=== PATIENT | female | born 1950 | race Caucasian/White ===

== ENCOUNTER 2020-04-24 12:20 | Outpatient (REF) | payer MEDICARE, SELFPAY ==
[2020-04-24 12:47] VITALS: BP 129/78; PULSE 118; RESP 16; TEMP 36.6; O2SAT 96
[2020-04-24 12:48] VITALS: BMI 47.5
== END 2020-04-24 12:21 | disposition home or self-care (01) ==
LOC: HO.MS 12:20
PROVIDERS: PCP Internal Medicine; Visit Provider Ophthalmology
PROC: (CPT 66821; principal; 2020-04-24 14:40)
DX: H26.491 Other secondary cataract, right eye (principal); Z83.511 Family history of glaucoma; Z96.1 Presence of intraocular lens; I10 Essential (primary) hypertension; Z87.891 Personal history of nicotine dependence; Z79.899 Other long term (current) drug therapy
CPT/HCPCS: 66821

== ENCOUNTER 2020-06-01 07:25 | Outpatient (REF) | payer MEDICARE, SELFPAY ==
[2020-06-01 08:45] LABS: MANUAL DIFF FLAG NO
[2020-06-01 08:55] LABS: Basophils Absolute Auto 0.1 X10*3/uL (0.0-0.2); Basophils Percent Auto 0.6 % (0-2); Eosinophils Absolute Auto 0.2 X10*3/uL (0.0-0.4); Eosinophils Percent Auto 1.6 % (0-4); Hematocrit 42.4 % (37-47); Hemoglobin 13.8 g/dl (12.0-16.0); Imm Gran Abs Auto 0.05 X10*3/uL (0.00-0.03); Imm Gran Pct Auto 0.5 % (0.0-0.4); Lymphocytes Absolute Auto 2.1 X10*3/uL (1.2-4.9); Lymphocytes Percent Auto 21.1 % (20-40); Mean Corpuscular HGB Conc 32.5 g/dl (31.0-35.0); Mean Corpuscular Hemoglobin 28.4 pg (27.0-33.0); Mean Corpuscular Volume 87.2 fL (80-98); Mean Platelet Volume 10.2 fL (9.4-12.3); Monocytes Absolute Auto 0.7 X10*3/uL (0.1-1.2); Monocytes Percent Auto 7.2 % (2-11); Neutrophils Absolute Auto 6.8 X10*3/uL (2.0-8.3); Platelet Count 344 X10*3/uL (160-400); Red Blood Count 4.86 X10*6/uL (4.20-5.50); Red Cell Distribution Width 13.9 % (11.0-16.0); White Blood Count 9.8 X10*3/uL (4.8-10.8)
[2020-06-01 09:18] LABS: Alanine Aminotransferase 15 U/L (0-31); Alkaline Phosphatase 103 U/L (39-117); Anion Gap 14 (12-20); Aspartate Amino Transferase 16 U/L (5-31); Bilirubin Total 0.5 mg/dL (0.0-1.0); Blood Urea Nitrogen 12 mg/dL (9-16); Calcium 9.1 mg/dL (8.4-10.2); Carbon Dioxide 29 mmol/L (22-29); Chloride 102 mmol/L (96-108); Cholesterol 200 mg/dL; Estimated Glomerular Filt Rate > 60; Glucose Fasting 100 mg/dL (60-99); HDL Cholesterol 74 mg/dL; LDL Cholesterol Calculated 113 mg/dl; Potassium 4.2 mmol/l (3.3-5.1); Sodium 141 mmol/L (135-145); Total Protein 6.9 g/dL (6.5-8.0); Triglycerides 67 mg/dL
[2020-06-01 09:39] LABS: TSH reflex Free T4 1.05 mIU/mL (0.32-4.0); Vitamin D 25-OH Total 37.1 ng/mL (>30)
[2020-06-01 09:51] LABS: Glucose Urine UA NEG (NEG); Leukocyte Esterase Urine NEG (NEG); Nitrite Urine NEG (NEG); PH 6.5 (5.0-8.0); Urine Blood NEG (NEG); Urine Ketones NEG (NEG); Urine Protein NEG (NEG-TRACE)
[2020-06-01 10:04] LABS: Appearance Urine CLEAR; Color Urine YELLOW
[2020-06-01 10:11] LABS: Bacteria Urine 1+ /LPF; RBC Urine 0 /HPF (0); Squamous Epithelial Cell Urine 3+ /LPF
[2020-06-01 10:21] LABS: Estimated Average Glucose 114 mg/dL; Hemoglobin A1c % 5.6 %
== END 2020-06-01 07:26 | disposition home or self-care (01) ==
LOC: HO.LAB 07:25
PROVIDERS: PCP Internal Medicine; Visit Provider Internal Medicine
DX: E78.5 Hyperlipidemia, unspecified (principal); I10 Essential (primary) hypertension; R73.01 Impaired fasting glucose; J44.9 Chronic obstructive pulmonary disease, unspecified; K21.9 Gastro-esophageal reflux disease without esophagitis; E55.9 Vitamin D deficiency, unspecified; I89.0 Lymphedema, not elsewhere classified; F32.9 Major depressive disorder, single episode, unspecified; E66.01 Morbid (severe) obesity due to excess calories
CPT/HCPCS: 36415; 80053; 80061; 81001; 82306; 83036; 84443; 85025

== ENCOUNTER 2020-08-18 07:21 | Outpatient (REF) | payer MEDICARE, SELFPAY ==
[2020-08-18 07:57] LABS: Glucose Urine UA NEG (NEG); Leukocyte Esterase Urine NEG (NEG); Nitrite Urine NEG (NEG); PH 6.5 (5.0-8.0); Specific Gravity - Urine 1.015 (1.005-1.025); Urine Blood NEG (NEG); Urine Ketones NEG (NEG); Urine Protein NEG (NEG-TRACE)
[2020-08-18 07:58] LABS: Appearance Urine CLEAR; Color Urine YELLOW
[2020-08-18 08:20] LABS: MANUAL DIFF FLAG NO
[2020-08-18 08:31] LABS: Basophils Absolute Auto 0.1 X10*3/uL (0.0-0.2); Basophils Percent Auto 0.5 % (0-2); Eosinophils Absolute Auto 0.2 X10*3/uL (0.0-0.4); Eosinophils Percent Auto 2.1 % (0-4); Hematocrit 41.5 % (37-47); Hemoglobin 13.3 g/dl (12.0-16.0); Imm Gran Abs Auto 0.04 X10*3/uL (0.00-0.03); Imm Gran Pct Auto 0.4 % (0.0-0.4); Lymphocytes Absolute Auto 2.5 X10*3/uL (1.2-4.9); Lymphocytes Percent Auto 23.6 % (20-40); Mean Corpuscular Hemoglobin 28.1 pg (27.0-33.0); Mean Corpuscular Volume 87.6 fL (80-98); Mean Platelet Volume 10.4 fL (9.4-12.3); Monocytes Absolute Auto 0.8 X10*3/uL (0.1-1.2); Monocytes Percent Auto 7.1 % (2-11); Neutrophils Absolute Auto 7.1 X10*3/uL (2.0-8.3); Neutrophils Percent Auto 66.3 % (45-73); Platelet Count 356 X10*3/uL (160-400); Red Blood Count 4.74 X10*6/uL (4.20-5.50); Red Cell Distribution Width 14.5 % (11.0-16.0); White Blood Count 10.7 X10*3/uL (4.8-10.8)
[2020-08-18 08:51] LABS: Alanine Aminotransferase 16 U/L (0-31); Albumin Level 3.8 g/dL (3.5-5.0); Alkaline Phosphatase 93 U/L (39-117); Anion Gap 13 (12-20); Aspartate Amino Transferase 14 U/L (5-31); Bilirubin Total 0.7 mg/dL (0.0-1.0); Blood Urea Nitrogen 12 mg/dL (9-16); Calcium 9.2 mg/dL (8.4-10.2); Carbon Dioxide 27 mmol/L (22-29); Chloride 105 mmol/L (96-108); Cholesterol 197 mg/dL; Estimated Glomerular Filt Rate > 60; Glucose Fasting 95 mg/dL (60-99); HDL Cholesterol 77 mg/dL; LDL Cholesterol Calculated 110 mg/dl; Potassium 4.4 mmol/L (3.3-5.1); Sodium 141 mmol/L (135-145); Total Protein 6.6 g/dL (6.5-8.0); Triglycerides 53 mg/dL
[2020-08-18 09:08] LABS: Erythrocyte Sedimentation Rate 38 MM/HR (0-20)
[2020-08-18 09:14] LABS: TSH reflex Free T4 1.37 uIU/mL (0.32-4.0); Vitamin D 25-OH Total 34.1 ng/mL (>30)
== END 2020-08-18 07:22 | disposition home or self-care (01) ==
LOC: HO.LAB 07:21
PROVIDERS: PCP Internal Medicine; Visit Provider Internal Medicine
DX: M25.50 Pain in unspecified joint (principal); K21.9 Gastro-esophageal reflux disease without esophagitis; I10 Essential (primary) hypertension; J44.9 Chronic obstructive pulmonary disease, unspecified; E78.00 Pure hypercholesterolemia, unspecified; R73.01 Impaired fasting glucose; I89.0 Lymphedema, not elsewhere classified; M17.10 Unilateral primary osteoarthritis, unspecified knee; E66.01 Morbid (severe) obesity due to excess calories; Z68.42 Body mass index [BMI] 45.0-49.9, adult; E55.9 Vitamin D deficiency, unspecified
CPT/HCPCS: 36415; 80053; 80061; 81003; 82306; 84443; 85025; 85652

== ENCOUNTER → 2020-12-01 08:19 | Outpatient (BNVA) | payer MEDICARE, SELFPAY | PROVIDERS: PCP Internal Medicine; Visit Provider Obstetrics & Gynecology | DX: N95.0 Postmenopausal bleeding (principal); R10.2 Pelvic and perineal pain | CPT/HCPCS: 99202 ==

== ENCOUNTER 2020-12-05 07:15 | Outpatient (REF) | payer MEDICARE, SELFPAY ==
[2020-12-05 08:07] LABS: MANUAL DIFF FLAG NO
[2020-12-05 08:16] LABS: Basophils Absolute Auto 0.1 X10*3/uL (0.0-0.2); Basophils Percent Auto 0.6 % (0-2); Eosinophils Absolute Auto 0.2 X10*3/uL (0.0-0.4); Eosinophils Percent Auto 2.3 % (0-4); Hematocrit 39.9 % (37-47); Hemoglobin 12.7 g/dl (12.0-16.0); Imm Gran Abs Auto 0.04 X10*3/uL (0.00-0.03); Imm Gran Pct Auto 0.4 % (0.0-0.4); Lymphocytes Absolute Auto 2.4 X10*3/uL (1.2-4.9); Lymphocytes Percent Auto 26.2 % (20-40); Mean Corpuscular HGB Conc 31.8 g/dl (31.0-35.0); Mean Corpuscular Hemoglobin 27.9 pg (27.0-33.0); Mean Corpuscular Volume 87.7 fL (80-98); Mean Platelet Volume 10.5 fL (9.4-12.3); Monocytes Absolute Auto 0.7 X10*3/uL (0.1-1.2); Monocytes Percent Auto 7.6 % (2-11); Neutrophils Absolute Auto 5.7 X10*3/uL (2.0-8.3); Neutrophils Percent Auto 62.9 % (45-73); Platelet Count 396 X10*3/uL (160-400); Red Blood Count 4.55 X10*6/uL (4.20-5.50); Red Cell Distribution Width 14.4 % (11.0-16.0)
[2020-12-05 08:40] LABS: Estimated Average Glucose 114 mg/dL; Hemoglobin A1c % 5.6 %
[2020-12-05 08:42] LABS: Alanine Aminotransferase 14 U/L (0-31); Albumin Level 3.7 g/dL (3.5-5.0); Alkaline Phosphatase 97 U/L (39-117); Anion Gap 10 (12-20); Aspartate Amino Transferase 15 U/L (5-31); Bilirubin Total 0.5 mg/dL (0.0-1.0); Blood Urea Nitrogen 10 mg/dL (9-16); Calcium 9.3 mg/dL (8.4-10.2); Carbon Dioxide 29 mmol/L (22-29); Chloride 109 mmol/L (96-108); Cholesterol 195 mg/dL; Estimated Glomerular Filt Rate > 60; Glucose Fasting 109 mg/dL (60-99); HDL Cholesterol 67 mg/dL; LDL Cholesterol Calculated 115 mg/dl; Potassium 4.7 mmol/L (3.3-5.1); Sodium 143 mmol/L (135-145); Total Protein 6.3 g/dL (6.5-8.0); Triglycerides 65 mg/dL
[2020-12-05 08:54] LABS: Glucose Urine UA NEG (NEG); Leukocyte Esterase Urine NEG (NEG); Nitrite Urine NEG (NEG); Specific Gravity - Urine <= 1.005 (1.005-1.025); Urine Blood NEG (NEG); Urine Ketones NEG (NEG); Urine Protein NEG (NEG-TRACE)
[2020-12-05 08:57] LABS: Erythrocyte Sedimentation Rate 31 MM/HR (0-20)
[2020-12-05 09:00] LABS: Appearance Urine HAZY; Color Urine YELLOW
[2020-12-05 09:02] LABS: TSH reflex Free T4 0.81 uIU/mL (0.32-4.0); Vitamin D 25-OH Total 32.8 ng/mL (>30)
== END 2020-12-05 07:16 | disposition home or self-care (01) ==
LOC: HO.LAB 07:15
PROVIDERS: PCP Internal Medicine; Visit Provider Internal Medicine
DX: E55.9 Vitamin D deficiency, unspecified (principal); M17.10 Unilateral primary osteoarthritis, unspecified knee; M25.50 Pain in unspecified joint; E78.00 Pure hypercholesterolemia, unspecified; I10 Essential (primary) hypertension; I89.0 Lymphedema, not elsewhere classified; R73.01 Impaired fasting glucose; G47.33 Obstructive sleep apnea (adult) (pediatric); J44.9 Chronic obstructive pulmonary disease, unspecified; K21.9 Gastro-esophageal reflux disease without esophagitis; E66.01 Morbid (severe) obesity due to excess calories; Z68.42 Body mass index [BMI] 45.0-49.9, adult
CPT/HCPCS: 36415; 80053; 80061; 81003; 82306; 83036; 84443; 85025; 85652

== ENCOUNTER 2020-12-18 15:23 | Outpatient (REF) | payer MEDICARE, SELFPAY ==
--- NOTE | ~2020-12-18 | US_ITS ---
EXAMINATION: PELVIC ULTRASOUND CLINICAL INFORMATION: Postmenopausal bleeding COMPARISON: Previous pelvic ultrasound January 2017 TECHNIQUE: Transabdominal pelvic ultrasound was performed. Patient declined transvaginal imaging. FINDINGS: The uterus is anteverted and measures 7.5 x 3.5 x 3.7 cm in dimension. Endometrial thickness is upper normal for a postmenopausal patient measuring 0.5 cm. No focal uterine lesion is seen. The ovaries are not seen. There is no fluid in the pelvis. US/US pelvic and transvaginal IMPRESSION: Limited exam. Upper normal thickness endometrium measuring 0.5 cm. Ovaries not seen.
== END 2020-12-18 15:24 | disposition home or self-care (01) ==
LOC: HO.US 15:23
PROVIDERS: PCP Internal Medicine; Visit Provider Obstetrics & Gynecology
DX: R10.2 Pelvic and perineal pain (principal); N95.0 Postmenopausal bleeding
CPT/HCPCS: 76830; 76856

== ENCOUNTER → 2020-12-22 10:42 | Outpatient (BNVA) | payer MEDICARE, SELFPAY | PROVIDERS: PCP Internal Medicine; Visit Provider Obstetrics & Gynecology | DX: N95.0 Postmenopausal bleeding (principal) | CPT/HCPCS: Q3014 ==

== ENCOUNTER → 2021-01-08 10:16 | Outpatient (BNVA) | payer MEDICARE, SELFPAY | PROVIDERS: PCP Internal Medicine; Visit Provider Obstetrics & Gynecology | DX: N95.0 Postmenopausal bleeding (principal) | CPT/HCPCS: 99212 ==

== ENCOUNTER 2021-01-12 09:03 | Day surgery (SDC) | payer MEDICARE, SELFPAY ==
--- NOTE | 2021-01-11 08:38 | HO.ANESPROP2 ---
Documented by User: Katlyn Mejia 01/11/21 08:39 HPI - Anesthesia Eval Consult details Narrative: 70yo F for D&C Hysteroscopy, Poss Polypectomy, Poss Myomectomy PMFSH Active Problems Active Problems: All Active Problems (Updated 12/26/20 @ 10:05 by HUBER Torres) Adult general medical exam (Acute) Post-menopausal (Acute) Screening for breast cancer (Acute) Screening for colon cancer (Acute) Postmenopausal bleeding (Acute) Anxiety (Acute) Morbid obesity with BMI of 45.0-49.9, adult (Acute) Depression (Acute) Lymphedema of both lower extremities (Acute) Polyarthralgia (Acute) Vitamin D deficiency (Acute) GERD without esophagitis (Acute) Obstructive sleep apnea (Acute) Osteoarthritis, knee (Acute) Impaired fasting glucose (Acute) Exertional dyspnea (Acute) COPD (chronic obstructive pulmonary disease) (Acute) Pure hypercholesterolemia (Acute) Benign essential hypertension (Acute) Leg wound, right (Acute) Leg wound, left (Acute) Lymphedema (Acute) Past Medical History Medical History Anxiety Benign essential hypertension COPD (chronic obstructive pulmonary disease) Depression Exertional dyspnea GERD without esophagitis Impaired fasting glucose Leg wound, left Leg wound, right Lymphedema Lymphedema of both lower extremities Morbid obesity with BMI of 45.0-49.9, adult Obstructive sleep apnea Osteoarthritis, knee Polyarthralgia Post-menopausal Pure hypercholesterolemia Screening for breast cancer Screening for colon cancer Vitamin D deficiency Family History Family History Father Diabetes CVD (cardiovascular disease) Mother No problems noted. Family/Other FH: mental illness Son Suicide Other Substance abuse Surgical History Surgical History History of arthroplasty of left knee History of biopsy History of cataract surgery History of colonoscopy History of hysteroscopy History of laparoscopic cholecystectomy History of vascular surgery Status post surgical removal of nail matrix of toe of right foot Social History Social History Housing: House Alcohol intake: current Alcohol intake frequency: holidays/special occasions only Patient Tobacco Use Status: Former Tobacco user Use of substances other than those prescribed or required for medical reasons: No Are you DNR?: No Advance Directives: No Advance Directives Information Provided: Yes service: No Current occupational status: retired Meds Allergies Allergy/AdvReac Type Severity Reaction Status Date / Time gabapentin AdvReac Unknown drowsiness, Verified 01/08/21 10:39 confusion Home Medications Medication Instructions Recorded Confirmed Last Taken Type tramadol 50 mg tablet 50 mg PO Q6-8H PRN tab 06/05/20 01/08/21 Unknown History Exam Exam Date and Time: January 11, 2021 0838 Pertinent Lab Results Pertinent Lab Results: Laboratory Tests 12/05/20 12/05/20 07:43 07:43 WBC 9.0 Hgb 12.7 Hct 39.9 Plt Count 396 Sodium 143 Potassium 4.7 Chloride 109 H Carbon Dioxide 29 BUN 10 Creatinine 0.69 Assessment and Plan Assessment Anesthesia Assessment: Chart Reviewed Documented by User: Kaila Baron 01/12/21 10:05 PMFSH Past Medical History Medical History Anxiety Benign essential hypertension COPD (chronic obstructive pulmonary disease) Depression Exertional dyspnea GERD without esophagitis Impaired fasting glucose Leg wound, left Leg wound, right Lymphedema Lymphedema of both lower extremities Morbid obesity with BMI of 45.0-49.9, adult Obstructive sleep apnea Osteoarthritis, knee Polyarthralgia Post-menopausal Pure hypercholesterolemia Screening for breast cancer Screening for colon cancer Vitamin D deficiency Family History Family History Father Diabetes CVD (cardiovascular disease) Mother No problems noted. Family/Other FH: mental illness Son Suicide Other Substance abuse Surgical History Surgical History History of arthroplasty of left knee History of biopsy History of cataract surgery History of colonoscopy History of hysteroscopy History of laparoscopic cholecystectomy History of vascular surgery Status post surgical removal of nail matrix of toe of right foot Social History Social History Housing: House Alcohol intake: current Alcohol intake frequency: holidays/special occasions only Patient Tobacco Use Status: Former Tobacco user Use of substances other than those prescribed or required for medical reasons: No Are you DNR?: No Advance Directives: No Advance Directives Information Provided: Yes service: No Current occupational status: retired Meds Allergies Allergy/AdvReac Type Severity Reaction Status Date / Time gabapentin AdvReac Unknown drowsiness, Verified 01/08/21 10:39 confusion Home Medications Medication Instructions Recorded Confirmed Last Taken Type tramadol 50 mg tablet 50 mg PO Q6-8H PRN tab 06/05/20 01/08/21 Unknown History Exam Airway Mallampati Class: II TM Dist: >3cm Neck ROM: Full Loose/Missing/Broken Teeth: No Heart: RRR Lungs: CTA Assessment and Plan Assessment Anesthesia Assessment: Anesthesia Plan Discussed and Chart Reviewed Final Anesthetic Review NPO: Yes ASA Class: III Final Preanesthetic Review: Meds/Allgs Chart Reviewed, Consent Obtained/Reviewed and Anes Risks/Benef Reviewed Patient Risk: Intermediate Procedure Risk: Low Anesthetic Plan Anesthetic Plan: GA Disposition: Standard PACU
[2021-01-12 09:39] VITALS: BP 157/79; PULSE 99; RESP 20; TEMP 36.7; O2SAT 95; BMI 48.2
--- NOTE | 2021-01-12 09:49 | ECG_ITS ---
Test Reason : ? AFIB Blood Pressure : / mmHG Vent. Rate : 093 BPM Atrial Rate : 093 BPM P-R Int : 166 ms QRS Dur : 078 ms QT Int : 338 ms P-R-T Axes : -29 -11 008 degrees QTc Int : 420 ms Normal sinus rhythm Inferior infarct , age undetermined Abnormal ECG When compared with ECG of 04-MAR-2006 09:14, No significant change was found Referred By: Kaila Baron Electronically Signed By:PHILIP MENDEZ MD
--- NOTE | 2021-01-12 09:50 | PC.NURSE ---
3 lead monitor questionable Afib, leads adjusted, stickers adjusted, noisy strip w/ adjustments. Rhythm very regular but P waves not prominent. Anesthesia Dr Baron made aware, ekg ordered. Patient asymptomatic otherwise.
--- NOTE | 2021-01-12 09:59 | MHC.SHP ---
Pre-Procedural Eval Section A Date of Service: 01/12/21 The patient is an INPATIENT: No Changes since office visit: No Cold of Flu in the past 2 weeks, No New Medical Problems, No Changes in Medication and No Patient answered all questions The History & Physical has been completed within 30 days and I have reviewed it.: Yes Section B Chief Complaint: PMB Allergies: Allergies Allergy/AdvReac Type Severity Reaction Status Date / Time gabapentin AdvReac Unknown drowsiness, Verified 01/08/21 10:39 confusion Plan Diagnosis/Plan: Unchanged I have reviewed the history and physical and performed a pertinent physical examination on my patient. No changes have occurred unless specified.
[2021-01-12] MEDS: Lactated Ringers 1,000 ML 100 ML IVCONT (10:29)
--- NOTE | 2021-01-12 10:55 | PC.NURSE ---
Patient came into [facility] with Bilat lower leg edema. Patient has history of bilat LE lymphedema. Patient also has approx 2 inch diameter abrasion on right anterior lower leg/blake. Some localized erythema surrounding abrasion, no swelling or associated warmth when compared to rest of leg. USABILITY ENGINEERGARRET Bains visualized abrasion prior to going into OR.
[2021-01-12 11:36] VITALS: BP 153/92; PULSE 93; RESP 16; TEMP 36.1; O2SAT 96
--- NOTE | 2021-01-12 11:49 | PM.OP ---
Brief Operative Note Date of Service: 01/12/21 Pre-op diagnosis: Postmenopausal bleeding Post-op diagnosis: same (Same plus normal endometrial/endocervical cavity) Procedure: Hysteroscopy D&C, Polypectomy Surgeon: Navjot Jacob MD Anesthesia: MAC Was an Screen Printing Machine Operator used for this Procedure?: No Estimated blood loss (mL): 0 Pathology: other (Endometrial Scrapping) Condition: stable Disposition: PACU
--- NOTE | 2021-01-12 11:50 | P.OP_ITS ---
Operative Note Operative Note Date of Service: 01/12/21 Narrative: Preop Diagnosis: Postmenopausal bleeding Operation: Diagnostic Hysteroscopy, Dilataion & Curettage Post Op Diagnosis: Normal endometrial/endocervical cavity QBL: Minimal Anesthesia: MAC Surgeon: Navjot Jacob MD Internal Audit Director: None Complication: None Pathology: Endometrial Scrapings Procedure: The patient was put in the dorsal lithotomy position, scrubbed, and draped in the usual manner. A sterile speculum was inserted in the patient's vagina. The anterior lip of the cervix was grasped with a single tooth tenaculum. The cervix was dilated up to 5 mm, then the scope was inserted in the patient's uterus. Inspection revealed normal endometrial/endocervical cavity. Sharp curettings was carried on with minimal to moderate amount of tissues retrieved. At the end of the procedure, all instruments were taken out of the patient uterine and vaginal cavity. The single tooth tenaculum was removed and homeostasis was assured using pressure,. The patient tolerated the procedure well and was transferred to the PACU in a stable condition.
[2021-01-12 11:51] VITALS: BP 152/85; PULSE 92; RESP 16; O2SAT 96
[2021-01-12] MEDS: oxyCODONE HCl Immed Release 5 MG TABLET PO (12:00)
[2021-01-12 12:06] VITALS: BP 172/85; PULSE 90; RESP 16; O2SAT 96
[2021-01-12 12:21] VITALS: BP 163/82; PULSE 92; RESP 16; O2SAT 98
[2021-01-12 12:36] VITALS: BP 152/80; PULSE 93; RESP 16; O2SAT 98
== END 2021-01-12 13:14 | disposition home or self-care (01) ==
LOC: HO.SSS 09:03
PROVIDERS: PCP Internal Medicine; Visit Provider Obstetrics & Gynecology
PROC: 0UDB8ZZ Extraction of Endometrium, Via Natural or Artificial Opening Endoscopic (ICD-10-PCS; CPT 58558; principal; 2021-01-12 11:00)
DX: N95.0 Postmenopausal bleeding (principal); I10 Essential (primary) hypertension; J44.9 Chronic obstructive pulmonary disease, unspecified; G47.33 Obstructive sleep apnea (adult) (pediatric); I89.0 Lymphedema, not elsewhere classified; E66.01 Morbid (severe) obesity due to excess calories; Z68.42 Body mass index [BMI] 45.0-49.9, adult; R73.01 Impaired fasting glucose; E55.9 Vitamin D deficiency, unspecified; Z79.899 Other long term (current) drug therapy; Z88.8 Allergy status to other drugs, medicaments and biological substances; Z87.891 Personal history of nicotine dependence
CPT/HCPCS: 58558; 88305; 93005; J2250; J3010

== ENCOUNTER → 2021-01-24 11:32 | Outpatient (BNVA) | payer MEDICARE, SELFPAY | PROVIDERS: PCP Internal Medicine; Visit Provider Obstetrics & Gynecology | DX: Z98.890 Other specified postprocedural states (principal); N95.0 Postmenopausal bleeding | CPT/HCPCS: Q3014 ==

== ENCOUNTER 2021-02-15 09:14 | Outpatient (REF) | payer MEDICARE, SELFPAY ==
--- NOTE | ~2021-02-15 | MM_ITS ---
EXAMINATION: BONE DENSITOMETRY CLINICAL INDICATION: Asymptomatic menopausal state. COMPARISON: Baseline BD dated 02/18/2007. TECHNIQUE: Using a [employer] DXA System (software version: 13.1) manufactured by [employer], dual-energy x-ray absorptiometry was performed of the lumbar spine and left hip. The images are of good technical quality. Summary results are attached. FINDINGS: AP SPINE L1-L4: Current: BMD 1.379 g/cm2, Z-score 2.2, T-score 1.7, normal, 4.9% increase from baseline (<5% change is not significant). Baseline: BMD 1.315 g/cm2. LEFT FEMUR, NECK: Current: BMD 1.031 g/cm2, Z-score 0.9, T-score -0.1, normal. Baseline: BMD 1.007 g/cm2. LEFT FEMUR, TOTAL: Current: BMD 1.172 g/cm2, Z-score 2.0, T-score 1.3, normal, 8.2% decrease from baseline (<5% change is not significant). Baseline: BMD 1.277 g/cm2. IDENTIFIED RISK FACTORS: Menopause. HISTORY OF FRACTURE: None listed. MEDICATIONS: Vitamin D. MM/XR DEXA axial skeleton IMPRESSION: 1. DIAGNOSIS: Normal bone density based on the lowest T-score value of -0.1 in the femoral neck applying World Health Organization criteria. 2. 10-YEAR FRACTURE RISK PREDICTION, FRAX: Major osteoporotic fracture (clinical spine, forearm, hip or shoulder) 6.2%. Hip fracture 0.3%. 3. Treatment Recommendations: NOF guidelines recommend consideration for treatment in postmenopausal women and men age 50 and older presenting with the following: -A hip or vertebral (clinical or morphometric) fracture. -T-score less than or equal to -2.5 at the femoral neck or spine after appropriate evaluation to exclude secondary causes. -Low bone mass at the hip or spine and a 10-year fracture probability by FRAX of greater than or equal to 3% for hip fracture or greater than or equal to 20% for major osteoporotic fracture based on the [place] adapted WHO algorithm. 4. Other Recommendations: All treatment decisions require clinical judgment and consideration of individual patient factors, including patient preferences, comorbidities, previous drug use, risk factors not captured in the FRAX model (e.g. frailty, falls, vitamin D deficiency, increased bone turnover, interval significant decline in bone density) and possible under or overestimation of fracture risk by FRAX. FUTURE SCAN RECOMMENDATION: People with diagnosed cases of osteoporosis or at high risk for fracture should have regular bone mineral density tests. For patients eligible for Medicare, routine testing is allowed once every 2 years. The testing frequency can be increased to one year for patients who have rapidly progressing disease, those who are receiving or discontinuing medical therapy to restore bone mass, or have additional risk factors.
== END 2021-02-15 09:15 | disposition home or self-care (01) ==
LOC: HO.MAMMO 09:14
PROVIDERS: PCP Internal Medicine; Visit Provider Nurse Practitioner Family
DX: Z13.820 Encounter for screening for osteoporosis (principal); Z78.0 Asymptomatic menopausal state
CPT/HCPCS: 77080

== ENCOUNTER 2021-03-10 08:44 | Outpatient (REF) | payer MEDICARE, SELFPAY ==
[2021-03-10 10:06] LABS: MANUAL DIFF FLAG SCAN; PLT CLUMP 1; SCAN SMEAR FLAG 1
[2021-03-10 10:08] LABS: Basophils Absolute Auto 0.1 X10*3/uL (0.0-0.2); Basophils Percent Auto 0.6 % (0-2); Eosinophils Absolute Auto 0.2 X10*3/uL (0.0-0.4); Hematocrit 42.5 % (37-47); Hemoglobin 13.9 g/dl (12.0-16.0); Imm Gran Abs Auto 0.06 X10*3/uL (0.00-0.03); Imm Gran Pct Auto 0.6 % (0.0-0.4); Lymphocytes Absolute Auto 2.2 X10*3/uL (1.2-4.9); Mean Corpuscular HGB Conc 32.7 g/dl (31.0-35.0); Mean Corpuscular Hemoglobin 28.6 pg (27.0-33.0); Mean Corpuscular Volume 87.4 fL (80-98); Mean Platelet Volume 11.5 fL (9.4-12.3); Monocytes Absolute Auto 0.7 X10*3/uL (0.1-1.2); Neutrophils Absolute Auto 6.4 X10*3/uL (2.0-8.3); Neutrophils Percent Auto 66.8 % (45-73); Platelet Count 329 X10*3/uL (160-400); Red Blood Count 4.86 X10*6/uL (4.20-5.50); Red Cell Distribution Width 15.2 % (11.0-16.0); White Blood Count 9.6 X10*3/uL (4.8-10.8)
[2021-03-10 10:09] LABS: Appearance Urine HAZY; Color Urine YELLOW; Glucose Urine UA NEG (NEG); Leukocyte Esterase Urine NEG (NEG); Nitrite Urine NEG (NEG); Urine Blood NEG (NEG); Urine Ketones NEG (NEG); Urine Protein NEG (NEG-TRACE)
[2021-03-10 10:26] LABS: SLIDE REVIEW VERIFIED
[2021-03-10 10:42] LABS: Vitamin D 25-OH Total 34.6 ng/mL (>30)
[2021-03-10 10:44] LABS: Alanine Aminotransferase 17 U/L (0-31); Albumin Level 3.9 g/dL (3.5-5.0); Alkaline Phosphatase 100 U/L (39-117); Anion Gap 12 (12-20); Aspartate Amino Transferase 14 U/L (5-31); Bilirubin Total 0.5 mg/dL (0.0-1.0); Blood Urea Nitrogen 9 mg/dL (9-16); Calcium 9.5 mg/dL (8.4-10.2); Carbon Dioxide 29 mmol/L (22-29); Chloride 106 mmol/L (96-108); Cholesterol 209 mg/dL; Estimated Glomerular Filt Rate > 60; Glucose Fasting 95 mg/dL (60-99); HDL Cholesterol 73 mg/dL; LDL Cholesterol Calculated 121 mg/dl; Potassium 4.5 mmol/L (3.3-5.1); Sodium 142 mmol/L (135-145); Total Protein 6.7 g/dL (6.5-8.0); Triglycerides 77 mg/dL
[2021-03-12 04:00] LABS: Folate 3.2 ng/mL (> or = 4.0); Vitamin B12 333 pg/mL (200-900)
== END 2021-03-10 08:45 | disposition home or self-care (01) ==
LOC: HO.LAB 08:44
PROVIDERS: PCP Internal Medicine; Visit Provider Internal Medicine
DX: E55.9 Vitamin D deficiency, unspecified (principal); E78.00 Pure hypercholesterolemia, unspecified; E66.01 Morbid (severe) obesity due to excess calories; Z68.42 Body mass index [BMI] 45.0-49.9, adult; F33.9 Major depressive disorder, recurrent, unspecified; G62.9 Polyneuropathy, unspecified; I10 Essential (primary) hypertension; K21.9 Gastro-esophageal reflux disease without esophagitis
CPT/HCPCS: 36415; 80053; 80061; 81003; 82306; 82607; 82746; 84443; 85025

== ENCOUNTER 2021-03-20 10:17 | Outpatient (REF) | payer MEDICARE, SELFPAY | END 2021-03-20 10:18 | disposition home or self-care (01) | LOC: HO.LAB 10:17 | PROVIDERS: PCP Internal Medicine; Visit Provider Obstetrics & Gynecology | DX: N95.0 Postmenopausal bleeding (principal) | CPT/HCPCS: 58100; 88305 ==

== ENCOUNTER → 2021-04-03 15:37 | Outpatient (BNVA) | payer MEDICARE, SELFPAY | PROVIDERS: PCP Internal Medicine; Visit Provider Obstetrics & Gynecology | DX: Z78.0 Asymptomatic menopausal state (principal); I10 Essential (primary) hypertension; E78.00 Pure hypercholesterolemia, unspecified; E55.9 Vitamin D deficiency, unspecified; J44.9 Chronic obstructive pulmonary disease, unspecified; E66.01 Morbid (severe) obesity due to excess calories; G47.33 Obstructive sleep apnea (adult) (pediatric); Z87.891 Personal history of nicotine dependence; Z68.42 Body mass index [BMI] 45.0-49.9, adult; Z88.6 Allergy status to analgesic agent | CPT/HCPCS: Q3014 ==

== ENCOUNTER 2021-06-07 07:01 | Outpatient (REF) | payer MEDICARE, SELFPAY ==
[2021-06-07 07:15] LABS: MANUAL DIFF FLAG NO
[2021-06-07 07:56] LABS: Basophils Absolute Auto 0.1 X10*3/uL (0.0-0.2); Basophils Percent Auto 0.7 % (0-2); Eosinophils Absolute Auto 0.3 X10*3/uL (0.0-0.4); Eosinophils Percent Auto 4.1 % (0-4); Hematocrit 41.4 % (37.0-47.0); Hemoglobin 13.2 g/dl (12.0-16.0); Imm Gran Abs Auto 0.03 X10*3/uL (0.00-0.03); Imm Gran Pct Auto 0.4 % (0.0-0.4); Lymphocytes Percent Auto 24.5 % (20-40); Mean Corpuscular HGB Conc 31.9 g/dl (31.0-35.0); Mean Corpuscular Hemoglobin 28.5 pg (27.0-33.0); Mean Corpuscular Volume 89.4 fL (80.0-98.0); Mean Platelet Volume 10.5 fL (9.4-12.3); Monocytes Absolute Auto 0.6 X10*3/uL (0.1-1.2); Monocytes Percent Auto 7.2 % (2-11); Neutrophils Absolute Auto 5.1 x10*3/uL (2.0-8.3); Neutrophils Percent Auto 63.1 % (45-73); Platelet Count 318 X10*3/uL (160-400); Red Blood Count 4.63 X10*6/uL (4.20-5.50); Red Cell Distribution Width 14.1 % (11.0-16.0); White Blood Count 8.1 X10*3/uL (4.8-10.8)
[2021-06-07 08:15] LABS: Alanine Aminotransferase 16 U/L (0-31); Albumin Level 3.8 g/dL (3.5-5.0); Alkaline Phosphatase 101 U/L (39-117); Anion Gap 12 (12-20); Aspartate Amino Transferase 15 U/L (5-31); Bilirubin Total 0.5 mg/dL (0.0-1.0); Blood Urea Nitrogen 9 mg/dL (9-16); Calcium 9.5 mg/dL (8.4-10.2); Carbon Dioxide 29 mmol/L (22-29); Chloride 105 mmol/L (96-108); Cholesterol 205 mg/dL; Estimated Glomerular Filt Rate > 60; Glucose Fasting 93 mg/dL (60-99); HDL Cholesterol 68 mg/dL; LDL Cholesterol Calculated 124 mg/dl; Potassium 4.4 mmol/L (3.3-5.1); Sodium 142 mmol/L (135-145); Total Protein 6.6 g/dL (6.5-8.0); Triglycerides 67 mg/dL
[2021-06-07 08:39] LABS: TSH reflex Free T4 0.98 uIU/mL (0.32-4.0); Vitamin D 25-OH Total 37.1 ng/mL (>30)
[2021-06-07 08:43] LABS: Appearance Urine CLEAR; Color Urine YELLOW; Glucose Urine UA NEG (NEG); Leukocyte Esterase Urine NEG (NEG); Nitrite Urine NEG (NEG); Specific Gravity - Urine 1.015 (1.005-1.025); Urine Blood NEG (NEG); Urine Ketones NEG (NEG); Urine Protein NEG (NEG-TRACE)
== END 2021-06-07 07:02 | disposition home or self-care (01) ==
LOC: HO.LAB 07:01
PROVIDERS: PCP Internal Medicine; Visit Provider Internal Medicine
DX: E78.00 Pure hypercholesterolemia, unspecified (principal); I10 Essential (primary) hypertension; E55.9 Vitamin D deficiency, unspecified
CPT/HCPCS: 36415; 80053; 80061; 81003; 82306; 84443; 85025

== ENCOUNTER → 2021-07-10 12:00 | Outpatient (BNVA) | payer MEDICARE, SELFPAY | PROVIDERS: Visit Provider Obstetrics & Gynecology | DX: N95.0 Postmenopausal bleeding (principal) | CPT/HCPCS: Q3014 ==

== ENCOUNTER → 2021-08-08 11:42 | Outpatient (BNVA) | payer MEDICARE, SELFPAY | PROVIDERS: PCP Internal Medicine; Visit Provider Obstetrics & Gynecology | DX: N95.0 Postmenopausal bleeding (principal) | CPT/HCPCS: 99212 ==

== ENCOUNTER 2021-08-10 11:05 | Day surgery (SDC) | payer MEDICARE, SELFPAY ==
[2021-08-03 15:50] VITALS: BMI 47.2
--- NOTE | 2021-08-09 11:53 | HO.ANESPROP2 ---
Documented by User: Katlyn Mejia NP 08/09/21 11:54 HPI - Anesthesia Eval Consult details Narrative: 70yo F for D&C Hysteroscopy, Possible Polypectomy, Possible Myomectomy s/p same 12/2020 with [facility] Active Problems Active Problems: All Active Problems (Updated 03/14/21 @ 13:15 by Leland Sher MD) Postmenopausal bleeding (Acute) Adult general medical exam (Acute) Fatigue (Acute) Post-menopausal (Acute) Screening for breast cancer (Acute) Screening for colon cancer (Acute) Anxiety (Acute) Morbid obesity with BMI of 45.0-49.9, adult (Acute) Depression (Acute) Lymphedema of both lower extremities (Acute) Polyarthralgia (Acute) Vitamin D deficiency (Acute) GERD without esophagitis (Acute) Obstructive sleep apnea (Acute) Osteoarthritis, knee (Acute) Impaired fasting glucose (Acute) Exertional dyspnea (Acute) COPD (chronic obstructive pulmonary disease) (Acute) Pure hypercholesterolemia (Acute) Benign essential hypertension (Acute) Leg wound, right (Acute) Leg wound, left (Acute) Lymphedema (Acute) Past Medical History Medical History Anxiety Benign essential hypertension COPD (chronic obstructive pulmonary disease) Depression Exertional dyspnea GERD without esophagitis Impaired fasting glucose Leg wound, left Leg wound, right Lymphedema Lymphedema of both lower extremities Morbid obesity with BMI of 45.0-49.9, adult Obstructive sleep apnea Osteoarthritis, knee Polyarthralgia Post-menopausal Pure hypercholesterolemia Screening for breast cancer Screening for colon cancer Vitamin D deficiency Family History Family History Father Diabetes CVD (cardiovascular disease) Mother No problems noted. Family/Other FH: mental illness Son Suicide Other Substance abuse Surgical History Surgical History History of arthroplasty of left knee History of biopsy History of cataract surgery History of colonoscopy History of hysteroscopy History of laparoscopic cholecystectomy History of vascular surgery Status post surgical removal of nail matrix of toe of right foot Social History Social History Household Members Other:: Grandson Housing: House Are you a primary lpn care manager to a significant other at home: No Do you presently have visiting nurse or other home services: No Alcohol intake: current Alcohol intake frequency: holidays/special occasions only Patient Tobacco Use Status: Former Tobacco user Quit Date: 3 yrs ago Tobacco use type: Cigarette Second Hand Smoke Exposure: Yes Use of substances other than those prescribed or required for medical reasons: No Have you been hit, kicked, punched, or otherwise hurt by someone within the past year? If so, by whom?: No Are you DNR?: No Advance Directives: No Advance Directives Information Provided: No Advance Directives on File: No Recently lost weight without trying: No Eating poorly because of decreased appetite: No Nutrition Risks: No Nutritional Risk service: No Current occupational status: retired Meds Allergies Allergy/AdvReac Type Severity Reaction Status Date / Time gabapentin AdvReac Unknown drowsiness, Verified 08/03/21 15:37 confusion Home Medications Medication Instructions Recorded Confirmed Last Taken Type tramadol 50 mg tablet 50 mg PO Q6-8H PRN tab 06/05/20 08/03/21 Unknown History Exam Exam Date and Time: August 09, 2021 1153 Height,Weight and Vital Signs: Height 5 ft 2 in Weight 117.027 kg Pertinent Lab Results Pertinent Lab Results: Laboratory Tests 06/07/21 06/07/21 07:13 07:13 WBC 8.1 Hgb 13.2 Hct 41.4 Plt Count 318 Sodium 142 Potassium 4.4 Chloride 105 Carbon Dioxide 29 BUN 9 Creatinine 0.80 Narrative Narrative: EKG 12/2020 Vent. Rate : 093 BPM ? ? Atrial Rate : 093 BPM ?? P-R Int : 166 ms? QRS Dur : 078 ms ? ? QT Int : 338 ms ? ? ? P-R-T Axes : -29 -11 008 degrees ?? QTc Int : 420 ms ? Normal sinus rhythm Inferior infarct , age undetermined Abnormal ECG When compared with ECG of 04-MAR-2006 09:14, No significant change was found Assessment and Plan Assessment Anesthesia Assessment: Chart Reviewed Documented by User: Endre Derek, MD 08/10/21 11:39 PMF Past Medical History Medical History Anxiety Benign essential hypertension COPD (chronic obstructive pulmonary disease) Depression Exertional dyspnea GERD without esophagitis Impaired fasting glucose Leg wound, left Leg wound, right Lymphedema Lymphedema of both lower extremities Morbid obesity with BMI of 45.0-49.9, adult Obstructive sleep apnea Osteoarthritis, knee Polyarthralgia Post-menopausal Pure hypercholesterolemia Screening for breast cancer Screening for colon cancer Vitamin D deficiency Family History Family History Father Diabetes CVD (cardiovascular disease) Mother No problems noted. Family/Other FH: mental illness Son Suicide Other Substance abuse Family history of problems with anesthesia: No Surgical History Surgical History History of arthroplasty of left knee History of biopsy History of cataract surgery History of colonoscopy History of hysteroscopy History of laparoscopic cholecystectomy History of vascular surgery Status post surgical removal of nail matrix of toe of right foot History of Problems with Anesthesia: No Social History Social History Household Members Other:: Grandson Housing: House Are you a primary lpn care manager to a significant other at home: No Do you presently have visiting nurse or other home services: No Alcohol intake: current Alcohol intake frequency: holidays/special occasions only Patient Tobacco Use Status: Former Tobacco user Quit Date: 3 yrs ago Tobacco use type: Cigarette Second Hand Smoke Exposure: Yes Use of substances other than those prescribed or required for medical reasons: No Have you been hit, kicked, punched, or otherwise hurt by someone within the past year? If so, by whom?: No Are you DNR?: No Advance Directives: No Advance Directives Information Provided: No Advance Directives on File: No Recently lost weight without trying: No Eating poorly because of decreased appetite: No Nutrition Risks: No Nutritional Risk service: No Current occupational status: retired Meds Allergies Allergy/AdvReac Type Severity Reaction Status Date / Time gabapentin AdvReac Unknown drowsiness, Verified 08/03/21 15:37 confusion Home Medications Medication Instructions Recorded Confirmed Last Taken Type tramadol 50 mg tablet 50 mg PO Q6-8H PRN tab 06/05/20 08/03/21 Unknown History Exam Airway Mallampati Class: II TM Dist: >3cm Neck ROM: Full Assessment and Plan Assessment Anesthesia Assessment: Anesthesia Plan Discussed Final Anesthetic Review Family History of Problems with Anesthesia: No History of Problems with Anesthesia: No NPO: Yes ASA Class: II and III Final Preanesthetic Review: No Changes in Pt Med Stat, Meds/Allgs Chart Reviewed, Consent Obtained/Reviewed and Anes Risks/Benef Reviewed Patient Risk: Intermediate Procedure Risk: Low Anesthetic Plan Anesthetic Plan: GA Disposition: Standard PACU
[2021-08-10] VITALS (7 sets, daily range): BP systolic 130–165; BP diastolic 69–98; PULSE 78–102; RESP 18–20; TEMP 36.6–37.4; O2SAT 95–100
--- NOTE | 2021-08-10 11:38 | MHC.SHP ---
Pre-Procedural Eval Section A Date of Service: 08/10/21 The patient is an INPATIENT: No Changes since office visit: No Cold of Flu in the past 2 weeks, No New Medical Problems, No Changes in Medication and No Patient answered all questions The History & Physical has been completed within 30 days and I have reviewed it.: Yes Section B Chief Complaint: PMB Allergies: Allergies Allergy/AdvReac Type Severity Reaction Status Date / Time gabapentin AdvReac Unknown drowsiness, Verified 08/03/21 15:37 confusion Plan Diagnosis/Plan: Unchanged I have reviewed the history and physical and performed a pertinent physical examination on my patient. No changes have occurred unless specified.
[2021-08-10] MEDS: Lactated Ringers 1,000 ML 100 ML IVCONT (11:45)
--- NOTE | 2021-08-10 13:08 | PM.OP ---
Brief Operative Note Date of Service: 08/10/21 Pre-op diagnosis: Postmenopausal bleeding Post-op diagnosis: same (with normal endometrial /endocervical cavity) Procedure: Hysteroscopy D&C Surgeon: Navjot Jacob MD Anesthesia: MAC Was an Personal Computer Network Analyst used for this Procedure?: No Estimated blood loss (mL): 0 Pathology: other (Endometrial Scrapping) Condition: stable Disposition: PACU
--- NOTE | 2021-08-10 13:09 | P.OP_ITS ---
Operative Note Operative Note Date of Service: 08/10/21 Narrative: Preop Diagnosis: Post Menopausal bleeding Operation: Diagnostic Hysteroscopy, Dilatation & Curettage Post Op Diagnosis: Normal endometrial cavity QBL: Minimal Anesthesia: MAC Surgeon: Navjot Jacob MD Telecommunications Field Technician: None Complication: None Pathology: Endometrial Scrapings Procedure: The patient was put in the dorsal lithotomy position, scrubbed, and draped in the usual manner. A sterile speculum was inserted in the patient's vagina. The anterior lip of the cervix was grasped with a single tooth tenaculum. The cervix was dilated up to 5 mm, then the scope was inserted in the patient's uterus. Inspection revealed Normal endometrial cavity. The Myosure Reach device was used; . At the end of the procedure, all instruments were taken out of the patient uterine and vaginal cavity. The single tooth tenaculum was removed and homeostasis was assured using pressure,. The patient tolerated the procedure well and was transferred to the PACU in a stable condition.
[2021-08-10] MEDS: oxyCODONE HCl Immed Release 5 MG TABLET PO (13:53)
== END 2021-08-10 14:45 | disposition home or self-care (01) ==
PROVIDERS: PCP Internal Medicine; Visit Provider Obstetrics & Gynecology
PROC: 0UDB8ZZ Extraction of Endometrium, Via Natural or Artificial Opening Endoscopic (ICD-10-PCS; CPT 58558; principal; 2021-08-10 12:40)
DX: N95.0 Postmenopausal bleeding (principal); I10 Essential (primary) hypertension; J44.9 Chronic obstructive pulmonary disease, unspecified; G47.33 Obstructive sleep apnea (adult) (pediatric); R73.01 Impaired fasting glucose; I89.0 Lymphedema, not elsewhere classified; E55.9 Vitamin D deficiency, unspecified; E66.01 Morbid (severe) obesity due to excess calories; Z68.42 Body mass index [BMI] 45.0-49.9, adult; Z90.710 Acquired absence of both cervix and uterus; Z79.899 Other long term (current) drug therapy; Z88.8 Allergy status to other drugs, medicaments and biological substances; Z87.891 Personal history of nicotine dependence
CPT/HCPCS: 58558; 88305; J1100; J2250; J2405; J3010

== ENCOUNTER → 2021-08-27 12:28 | Outpatient (BNVA) | payer MEDICARE, SELFPAY | PROVIDERS: Visit Provider Obstetrics & Gynecology | DX: N95.0 Postmenopausal bleeding (principal) | CPT/HCPCS: Q3014 ==

== ENCOUNTER 2021-10-04 09:10 | Outpatient (REF) | payer MEDICARE, SELFPAY ==
[2021-10-04 09:43] LABS: MANUAL DIFF FLAG NO
[2021-10-04 10:19] LABS: Basophils Absolute Auto 0.1 X10*3/uL (0.0-0.2); Basophils Percent Auto 0.7 % (0-2); Eosinophils Absolute Auto 0.2 X10*3/uL (0.0-0.4); Eosinophils Percent Auto 2.8 % (0-4); Hematocrit 40.3 % (37.0-47.0); Hemoglobin 12.9 g/dl (12.0-16.0); Imm Gran Abs Auto 0.03 X10*3/uL (0.00-0.03); Imm Gran Pct Auto 0.4 % (0.0-0.4); Lymphocytes Absolute Auto 2.3 X10*3/uL (1.2-4.9); Lymphocytes Percent Auto 28.8 % (20-40); Mean Corpuscular Hemoglobin 27.7 pg (27.0-33.0); Mean Corpuscular Volume 86.7 fL (80.0-98.0); Monocytes Absolute Auto 0.7 X10*3/uL (0.1-1.2); Monocytes Percent Auto 8.1 % (2-11); Neutrophils Absolute Auto 4.8 x10*3/uL (2.0-8.3); Neutrophils Percent Auto 59.2 % (45-73); Platelet Count 373 X10*3/uL (160-400); Red Blood Count 4.65 X10*6/uL (4.20-5.50); White Blood Count 8.1 X10*3/uL (4.8-10.8)
[2021-10-04 10:29] LABS: Estimated Average Glucose 111 mg/dL; Hemoglobin A1c % 5.5 %
[2021-10-04 10:49] LABS: Alanine Aminotransferase 13 U/L (0-31); Albumin Level 3.6 g/dL (3.5-5.0); Alkaline Phosphatase 103 U/L (39-117); Anion Gap 15 (12-20); Aspartate Amino Transferase 17 U/L (5-31); Bilirubin Total 0.5 mg/dL (0.0-1.0); Blood Urea Nitrogen 11 mg/dL (9-16); Calcium 9.5 mg/dL (8.4-10.2); Carbon Dioxide 25 mmol/L (22-29); Chloride 106 mmol/L (96-108); Cholesterol 206 mg/dL; Estimated Glomerular Filt Rate > 60; Glucose Fasting 105 mg/dL (60-99); HDL Cholesterol 61 mg/dL; LDL Cholesterol Calculated 129 mg/dl; Potassium 4.8 mmol/L (3.3-5.1); Sodium 141 mmol/L (135-145); Total Protein 6.5 g/dL (6.5-8.0); Triglycerides 80 mg/dL
[2021-10-04 10:58] LABS: Appearance Urine HAZY; Color Urine YELLOW; Glucose Urine UA NEG (NEG); Leukocyte Esterase Urine NEG (NEG); Nitrite Urine NEG (NEG); Specific Gravity - Urine 1.015 (1.005-1.025); Urine Blood NEG (NEG); Urine Ketones NEG (NEG); Urine Protein NEG (NEG-TRACE)
[2021-10-04 11:20] LABS: TSH reflex Free T4 1.27 uIU/mL (0.32-4.0); Vitamin D 25-OH Total 35.4 ng/mL (>30)
== END 2021-10-04 09:11 | disposition home or self-care (01) ==
LOC: HO.LAB 09:10
PROVIDERS: PCP Internal Medicine; Visit Provider Internal Medicine
DX: E78.00 Pure hypercholesterolemia, unspecified (principal); E55.9 Vitamin D deficiency, unspecified; R73.01 Impaired fasting glucose; I10 Essential (primary) hypertension
CPT/HCPCS: 36415; 80053; 80061; 81003; 82306; 83036; 84443; 85025

== ENCOUNTER → 2021-10-25 11:14 | Outpatient (BNVA) | payer MEDICARE, SELFPAY | PROVIDERS: PCP Internal Medicine; Referring Provider Internal Medicine; Visit Provider Internal Medicine | DX: R07.89 Other chest pain (principal); R06.02 Shortness of breath; R00.2 Palpitations | CPT/HCPCS: 93005; 99202 ==

== ENCOUNTER → 2021-11-06 07:35 | Outpatient (REF) | payer MEDICARE, SELFPAY ==
--- NOTE | ~2021-11-06 | NM_ITS ---
Myocardial perfusion study Indication: Chest pressure to evaluate for myocardial ischemia Technique: The patient was brought in for a Lexiscan perfusion study on 11/06/2021. Patient performed low-level exercise and was injected 0.4 mg of Lexiscan intravenously. Within a minute of injection, 45 mCi of sestamibi was given intravenously. Images were obtained using the SPECT gamma camera interlaced with the gating device. Images were obtained in supine position. Resting perfusion study was performed on 11/08/2021. Patient was administered 45 mCi of sestamibi intravenously at rest. Images were then obtained in supine position. Images obtained with and without CT attenuation. Total DLP 124 m Images were processed with the software and compared side to side in short axis, horizontal long axis and vertical long axis views. Findings: The stress perfusion study showed non attenuated images show overall normal uptake of radiotracer in all the LV myocardium with minimal thinning of the apex of the LV myocardium. Attenuation corrected images show minimally reduced uptake in the distal anterior and mildly reduced uptake in the apex of the LV myocardium. The gated study shows normal LV systolic function with calculated LVEF of 62%. LV cavity is normal in size. The gated study shows normal systolic wall thickening and contraction of segments. Resting study shows both non attenuated as well as attenuated corrected images show normal uptake of radiotracer in all segments of LV myocardium. Gating at rest reveals normal systolic wall motion with ejection fraction at 57%. The findings are consistent with likely normal myocardial perfusion. RI/NM cardiolite stress test Impression: 1. Myocardial perfusion imaging study shows likely normal myocardial perfusion 2. Gated LVEF is 62% 3. Transient ischemic dilatation not present EKG is nondiagnostic for ischemia
--- NOTE | 2021-11-06 07:42 | CA_ITS ---
Transthoracic Echocardiogram Patient (Last, First, Middle): Mary Ellen Mehta M Gender: Female Date of : 1950 Age: 70 Procedure Date: 11/06/2021 Procedure Type: Transthoracic Echocardiogram Location: OP Height: 157.48 cm Weight: 120.2 kg BSA: 2.15 m2 Heart Rate: bpm BP: 132 / 70 mmHg Title Agent: KESHIA Referring MD: Jasson Abraham MD Symptoms: R06.02 - Shortness of breath Study Quality: Fair ECG Rhythm: Sinus Conclusions: - The left ventricular systolic function is normal. The calculated ejection fraction is 63% by biplane method. - No obvious valvular pathology seen on this study. Findings Left Ventricle Normal left ventricular cavity size. There is mildly increased left ventricular wall thickness. The left ventricular systolic function is normal. The calculated ejection fraction is 63% by biplane method. There is no evidence of regional wall motion abnormalities. E/E prime ratio is between 8 and 15 consistent with indeterminate filling pressures. Evidence suggests grade I (mild) diastolic dysfunction. Right Ventricle Normal right ventricular cavity size and systolic function. Atria The left atrium is mildly dilated. The right atrium is normal in size. Aortic Valve The aortic valve was not well visualized. There is no aortic valve stenosis. There is no aortic valve regurgitation. Mitral Valve The mitral valve appears normal. There is trace mitral valve regurgitation. There is no mitral valve stenosis. Pulmonic Valve The pulmonic valve is likely normal. Tricuspid Valve Normal tricuspid valve structure. There is mild tricuspid valve regurgitation. The pulmonary artery systolic pressure is normal. Great Vessels The asc aorta is normal in size. Small plaque is seen in the sino tubular ridge. Venous The inferior vena cava was not well visualized. The inferior vena cava is normal in size and collapses less than 50% with inspiration. Pericardium/Pleural There is no evidence of pericardial effusion. Prior Study Comparison Changes noted compared to prior study dated: 12/14/2019. Slight change in diastolic function, related to age. Recommendations, Care & Conclusions No obvious valvular pathology seen on this study. Measurements 2D Linear Measurements IVSd: 1.18 0.6-0.9/0.6-1.0 cm LVIDd: 4.01 3.9-5.3/4.2-5.9 cm LVIDd Index: 1.87 2.4-3.2/2.2-3.1 cm/m2 LVIDs: 2.35 2.0-3.6 cm LVPWd: 1.11 0.7-1.1 cm LA Diam: 4.80 2.7-3.8/3.0-4.0 cm LAIDs Index: 2.23 1.5-2.3 cm/m2 LV Mass: 192.99 67-162/88-224 g LV Mass Index: 89.76 43-95/49-115 g/m2 LVOT Diam: 2.00 3.0+(-)1.3 cm 2D Systolic Function EF 4C: 64.30 >55% EF 2C: 60.50 >55% EF BiP: 63.10 >55% Mitral Valve MV Pk E: 1.01 MV PK A: 0.99 MV Decel Time: 187.00 E/A: 1.00 E'Lateral: 8.49 E'Medial: 6.85 E/E' Med: 14.70 E/E' Lat: 11.90 PHT: 55.00 MVA PHT: 4.00 Decel Dodge: 5.43 Aortic Valve AoV Pk Jai: 1.65 AoV Mn Jai: 1.28 AoV VTI: 0.37 AoV Pk Grad: 11.00 Aov Mn Grad: 7.00 CARLOS Cont.VTI: 1.93 LVOT LVOT Pk Jai: 1.06 LVOT Mn Jai: 0.78 LVOT VTI: 0.23 LVOT Pk Grad: 4.00 LVOT Mn Grad: 3.00 LVOT Diam: 2.00 LVOT Area: 3.14 Diastolic Function MV Pk E: 1.01 MV Pk A: 0.99 E/A: 1.00 E'Medial: 6.85 E/E' Med: 14.70 E' Laterial: 8.49 E/E' Lat: 11.90 Right Ventricle TAPSE (mm): 21.30 TVS' Jai: 15.10 Tricuspid Valve TR Pk Jai: 2.43 TR Pk Grad: 24.00 RA Press: 8.00 RVSP: 32.00 Great Vessels Aorta Sinus of Valsalva: 3.20 2.0-3.[address] Ridge: 1.94 1.7-3.4 cm Ao Asc: 3.30 2.1-3.4 cm Updated in Other Vendor System with Status of Final Jasson Abraham MD electronically signed on 11/07/2021 11:50:23 AM with status of Final
--- NOTE | 2021-11-06 07:42 | CA_ITS ---
Acquisition Time: 2021-11-06 08:59:06 Total Exercise Time: 00:02:00 Test Indications: Dyspnea Medications: ALBUTEROL ATORVASTATIN ESCITALOPRAM LOSARTAN OMEPRAZOLE TRAMADOL Protocol: LEXISCAN Max HR: 111 BPM 74% of Pred: 149 BPM Max BP: 116/060 mmHG Max Work Load: 1.0 METS Pharmacological stress test with Lexiscan injection, while sitting and kicking legs, without anginal symptoms, with isolated PVC, with normotensive response to injection, with nondiagnostic EKG for ischemia. In recovery she reportes of sob that was treated with aminophylline 75mg IVP to reverse Lexiscan with resolution of symptom. Nuclear images pending. Test reviewed with Dr Abraham. Referred By: Jasson Abraham Overread By: DENNIS COSTA
--- NOTE | 2021-11-07 12:30 | HM_ITS ---
* Total monitoring time 2 days and 23 hours. * Underlying rhythm sinus. Average rate 84/Min. Range 50 to 170/Min. About 19% of the time, rate greater than 100/Min. * No atrial fibrillation or flutter or AV blocks or pauses. * Occasional supraventricular ectopy. Short runs noted. Longest run detected 51 beats, but on review of EKG strip seems rather sinus. * Frequent ventricular ectopy; isolated beats; couplets; longest run 3 beats. * No sustained arrhythmias. * No patient events. MTDD
== END ==
LOC: HO.CARD 07:35
PROVIDERS: Visit Provider Internal Medicine
DX: R07.89 Other chest pain (principal); R06.02 Shortness of breath; R00.2 Palpitations
CPT/HCPCS: 78452; 93017; 93242; 93306; A9500; J0280; J2785

== ENCOUNTER 2022-01-08 10:40 | Outpatient (REF) | payer MEDICARE, SELFPAY ==
--- NOTE | ~2022-01-08 | MM_ITS ---
EXAMINATION: MM SCREENING DIGITAL BREAST TOMOSYNTHESIS, BILATERAL CLINICAL INFORMATION: Screening. Asymptomatic. The lifetime risk of breast cancer based on the Tyrer-Cuzick Model is 4.9%. COMPARISON: Mammography: February 24, 2018 and studies dating back to February 15, 2015 TECHNIQUE: Digital breast tomosynthesis is performed in both the craniocaudal and mediolateral oblique views along with computer-aided detection (CAD). Synthesized 2D images are generated from the tomosynthesis. FINDINGS: There are scattered areas of fibroglandular density (ACR BI-RADS breast composition Category b). There are no significant masses, abnormal calcifications, or other abnormalities. MM/MM tomosynthesis screening BI IMPRESSION: There are no significant changes from prior study. ASSESSMENT: BI-RADS 1: Negative RECOMMENDATION: Routine annual mammography screening. This patient's information was entered into a reminder system with a target due date for their next mammogram.
== END 2022-01-08 10:41 | disposition home or self-care (01) ==
LOC: HO.MAMMO 10:40
PROVIDERS: PCP Internal Medicine; Visit Provider Nurse Practitioner Family
DX: Z12.31 Encounter for screening mammogram for malignant neoplasm of breast (principal)
CPT/HCPCS: 77063; 77067

== ENCOUNTER 2022-02-19 07:01 | Outpatient (REF) | payer MEDICARE, SELFPAY ==
[2022-02-19 07:12] LABS: MANUAL DIFF FLAG NO
[2022-02-19 07:48] LABS: Basophils Percent Auto 0.3 % (0-2); Hematocrit 42.3 % (37.0-47.0); Hemoglobin 13.6 g/dl (12.0-16.0); Imm Gran Abs Auto 0.07 X10*3/uL (0.00-0.03); Imm Gran Pct Auto 0.6 % (0.0-0.4); Lymphocytes Absolute Auto 1.5 X10*3/uL (1.2-4.9); Lymphocytes Percent Auto 12.6 % (20-40); Mean Corpuscular HGB Conc 32.2 g/dl (31.0-35.0); Mean Corpuscular Hemoglobin 27.4 pg (27.0-33.0); Mean Corpuscular Volume 85.1 fL (80.0-98.0); Mean Platelet Volume 10.4 fL (9.4-12.3); Monocytes Absolute Auto 0.6 X10*3/uL (0.1-1.2); Monocytes Percent Auto 4.8 % (2-11); Neutrophils Absolute Auto 9.9 x10*3/uL (2.0-8.3); Neutrophils Percent Auto 81.7 % (45-73); Platelet Count 433 X10*3/uL (160-400); Red Blood Count 4.97 X10*6/uL (4.20-5.50); Red Cell Distribution Width 14.4 % (11.0-16.0); White Blood Count 12.1 X10*3/uL (4.8-10.8)
[2022-02-19 07:53] LABS: Estimated Average Glucose 111 mg/dL; Hemoglobin A1c % 5.5 %
[2022-02-19 08:13] LABS: Alanine Aminotransferase 17 U/L (0-31); Albumin Level 4.1 g/dL (3.5-5.0); Alkaline Phosphatase 106 U/L (39-117); Anion Gap 16 (12-20); Aspartate Amino Transferase 18 U/L (5-31); Bilirubin Total 0.4 mg/dL (0.0-1.0); Blood Urea Nitrogen 11 mg/dL (9-16); Calcium 9.7 mg/dL (8.4-10.2); Carbon Dioxide 26 mmol/L (22-29); Chloride 106 mmol/L (96-108); Cholesterol 160 mg/dL; Estimated Glomerular Filt Rate > 60; Glucose Fasting 105 mg/dL (60-99); HDL Cholesterol 59 mg/dL; LDL Cholesterol Calculated 89 mg/dl; Potassium 4.8 mmol/L (3.3-5.1); Sodium 143 mmol/L (135-145); Total Protein 7.5 g/dL (6.5-8.0); Triglycerides 64 mg/dL
[2022-02-19 08:36] LABS: TSH reflex Free T4 0.88 uIU/mL (0.32-4.0); Vitamin D 25-OH Total 44.1 ng/mL (>30)
[2022-02-19 08:51] LABS: Appearance Urine Turbid; Color Urine Yellow; Glucose Urine UA Negative (Negative); Leukocyte Esterase Urine Trace (Negative); Nitrite Urine Negative (Negative); Specific Gravity - Urine 1.015 (1.005-1.025); Urine Blood Negative (Negative); Urine Ketones Negative (Negative); Urine Protein Negative (Neg-Trace)
[2022-02-19 08:54] LABS: Bacteria Urine None Seen (None Seen); Hyaline Casts Urine 0-2 /LPF (0-2); RBC Urine 0-2 /HPF (0-2); Squamous Epithelial Cell Urine 0-2 /HPF (0-2); WBC Urine 0-5 /HPF (0-5)
== END 2022-02-19 07:02 | disposition home or self-care (01) ==
LOC: HO.LAB 07:01
PROVIDERS: PCP Internal Medicine; Visit Provider Internal Medicine
DX: I10 Essential (primary) hypertension (principal); E55.9 Vitamin D deficiency, unspecified; E78.00 Pure hypercholesterolemia, unspecified; R73.01 Impaired fasting glucose
CPT/HCPCS: 36415; 80053; 80061; 81001; 81003; 82306; 83036; 84443; 85025

== ENCOUNTER 2022-05-10 10:54 | Day surgery (SDC) | payer MEDICARE, SELFPAY ==
--- NOTE | 2022-05-09 11:27 | P.CONAN_ITS ---
Documented by User: Katlyn Mejia NP 05/09/22 11:29 [facility] Active Problems Active Problems: All Active Problems (Updated 01/01/22 @ 17:21 by HUBER Torres) Encounter for screening mammogram for malignant neoplasm of breast (Acute) Heart palpitations (Acute) SOB (shortness of breath) (Acute) Chest pressure (Acute) Postmenopausal bleeding (Acute) Adult general medical exam (Acute) Fatigue (Acute) Post-menopausal (Acute) Screening for breast cancer (Acute) Screening for colon cancer (Acute) Anxiety (Acute) Morbid obesity with BMI of 45.0-49.9, adult (Acute) Depression (Acute) Lymphedema of both lower extremities (Acute) Polyarthralgia (Acute) Vitamin D deficiency (Acute) GERD without esophagitis (Acute) Obstructive sleep apnea (Acute) Osteoarthritis, knee (Acute) Impaired fasting glucose (Acute) Exertional dyspnea (Acute) COPD (chronic obstructive pulmonary disease) (Acute) Pure hypercholesterolemia (Acute) Benign essential hypertension (Acute) Leg wound, right (Acute) Leg wound, left (Acute) Lymphedema (Acute) Past Medical History Medical History Anxiety Benign essential hypertension COPD (chronic obstructive pulmonary disease) Depression Exertional dyspnea GERD without esophagitis Impaired fasting glucose Leg wound, left Leg wound, right Lymphedema Lymphedema of both lower extremities Morbid obesity with BMI of 45.0-49.9, adult Obstructive sleep apnea Osteoarthritis, knee Polyarthralgia Post-menopausal Pure hypercholesterolemia Screening for breast cancer Screening for colon cancer Vitamin D deficiency Family History Family History Father Diabetes CVD (cardiovascular disease) Mother No problems noted. Family/Other FH: mental illness Son Suicide Other Substance abuse Family history of problems with anesthesia: No Surgical History Surgical History History of arthroplasty of left knee History of biopsy History of cataract surgery History of colonoscopy History of hysteroscopy History of laparoscopic cholecystectomy History of vascular surgery Status post surgical removal of nail matrix of toe of right foot History of Problems with Anesthesia: No Social History Social History Household Members Other:: Grandson Housing: House Are you a primary district manager primary care sales to a significant other at home: No Do you presently have visiting nurse or other home services: No Alcohol intake: current Alcohol intake frequency: does not drink Patient Tobacco Use Status: Former Tobacco user Quit Date: 1989 Tobacco use type: Cigarette e-Cigarette/Vaping Use: Never Used Second Hand Smoke Exposure: Yes Are you DNR?: No Advance Directives: No Advance Directives Information Provided: Yes Recently lost weight without trying: No Nutrition Risks: No Nutritional Risk service: No Current occupational status: retired Cognitive needs: Yes (cane) Hearing needs: No Vision needs: No Meds Allergies Allergy/AdvReac Type Severity Reaction Status Date / Time gabapentin AdvReac Unknown drowsiness, Verified 02/21/22 12:32 confusion Home Medications Medication Instructions Recorded Confirmed Last Taken Type tramadol 50 mg tablet 50 mg PO Q6-8H PRN Pain 06/05/20 02/21/22 Unknown History Exam Exam Date and Time: May 09, 2022 1127 Narrative Narrative: EKG 10/2021 sinus tachycardia, 107/Min; no significant ST-T changes and otherwise unremarkable ECHO 10/2021 Conclusions: - The left ventricular systolic function is normal.? The ? calculated ejection fraction is 63% by biplane method. ? - No obvious valvular pathology seen on this study. 3 Day Holter 10/2021 * Total monitoring time 2 days and 23 hours. * Underlying rhythm sinus.? Average rate 84/Min.? Range 50 to 170/Min.? About 19% of the time, rate greater than 100/Min. * No atrial fibrillation or flutter or AV blocks or pauses. * Occasional supraventricular ectopy.? Short runs noted.? Longest run detected 51 beats, but on review of EKG strip seems rather sinus. * Frequent ventricular ectopy; isolated beats; couplets; longest run 3 beats. * No sustained arrhythmias. * No patient events. NM cardiolite stress test 10/2021 Impression: ? 1.? Myocardial perfusion imaging study shows likely normal myocardial perfusion 2.? Gated LVEF is 62% 3. Transient ischemic dilatation not present ? EKG is nondiagnostic for ischemia Assessment and Plan Assessment Anesthesia Assessment: Chart Reviewed Final Anesthetic Review Family History of Problems with Anesthesia: No History of Problems with Anesthesia: No Documented by User: Ani Osborne MD 05/10/22 11:29 [facility] Past Medical History Medical History Anxiety Benign essential hypertension COPD (chronic obstructive pulmonary disease) Depression Exertional dyspnea GERD without esophagitis Impaired fasting glucose Leg wound, left Leg wound, right Lymphedema Lymphedema of both lower extremities Morbid obesity with BMI of 45.0-49.9, adult Obstructive sleep apnea Osteoarthritis, knee Polyarthralgia Post-menopausal Pure hypercholesterolemia Screening for breast cancer Screening for colon cancer Vitamin D deficiency Family History Family History Father Diabetes CVD (cardiovascular disease) Mother No problems noted. Family/Other FH: mental illness Son Suicide Other Substance abuse Surgical History Surgical History History of arthroplasty of left knee History of biopsy History of cataract surgery History of colonoscopy History of hysteroscopy History of laparoscopic cholecystectomy History of vascular surgery Status post surgical removal of nail matrix of toe of right foot Social History Social History Household Members Other:: Grandson Housing: House Are you a primary district manager primary care sales to a significant other at home: No Do you presently have visiting nurse or other home services: No Alcohol intake: current Alcohol intake frequency: does not drink Patient Tobacco Use Status: Former Tobacco user Quit Date: 1989 Tobacco use type: Cigarette e-Cigarette/Vaping Use: Never Used Second Hand Smoke Exposure: Yes Are you DNR?: No Advance Directives: No Advance Directives Information Provided: Yes Recently lost weight without trying: No Nutrition Risks: No Nutritional Risk service: No Current occupational status: retired Cognitive needs: Yes (cane) Hearing needs: No Vision needs: No Meds Allergies Allergy/AdvReac Type Severity Reaction Status Date / Time gabapentin AdvReac Unknown drowsiness, Verified 02/21/22 12:32 confusion Home Medications Medication Instructions Recorded Confirmed Last Taken Type tramadol 50 mg tablet 50 mg PO Q6-8H PRN Pain 06/05/20 02/21/22 Unknown History Exam Airway Mallampati Class: II (Cap lateral) TM Dist: >3cm Neck ROM: Full Heart: rrr Lungs: cta Assessment and Plan Assessment Anesthesia Assessment: Anesthesia Plan Discussed and Chart Reviewed Final Anesthetic Review NPO: Yes ASA Class: III Final Preanesthetic Review: No Changes in Pt Med Stat, Meds/Allgs Chart Reviewed and Consent Obtained/Reviewed Patient Risk: Intermediate Procedure Risk: Intermediate Anesthetic Plan Anesthetic Plan: MAC: Disposition: Standard PACU
[2022-05-10 06:22] VITALS: BMI 48.6
[2022-05-10 11:04] VITALS: BP 184/92; PULSE 93; RESP 20; TEMP 36.6; O2SAT 95; BMI 48.1
[2022-05-10 11:22] VITALS: BP 158/75
[2022-05-10] MEDS: Lactated Ringers 1,000 ML 100 ML IVCONT (11:34)
[2022-05-10 12:32] VITALS: BP 123/65; PULSE 98; RESP 16; TEMP 36.4; O2SAT 97
--- NOTE | 2022-05-10 12:38 | PM.OP ---
Brief Operative Note Date of Service: 05/10/22 Pre-op diagnosis: Screening Post-op diagnosis: other (Polyp) Procedure: Colonoscopy to the cecum and TI with bx/removal of polyp Surgeon: Erich Yang Anesthesia: MAC Was an Inverform Machine Operator used for this Procedure?: No Estimated blood loss (mL): 2.0 Pathology: other (A. Cecal polyp) Condition: stable Disposition: PACU
[2022-05-10 12:47] VITALS: BP 123/65; PULSE 81; RESP 16; O2SAT 92
[2022-05-10 13:03] VITALS: BP 123/65; PULSE 77; RESP 15; TEMP 36.9; O2SAT 92
--- NOTE | 2022-05-10 23:12 | OP_ITS ---
SURGEON: Erich Yang MD INDICATIONS: The patient presents for followup of personal history of tubular adenoma of the colon, and need for colorectal cancer screening. Full consent has been obtained from her for this, including risks of bleeding and perforation. PREOPERATIVE DIAGNOSIS: Colorectal cancer screening. POSTOPERATIVE DIAGNOSIS: PROCEDURE PERFORMED: Colonoscopy to the cecum and terminal ileum with biopsy and removal of polyp. ESTIMATED BLOOD LOSS: COMPLICATIONS: ANESTHESIA: Monitored anesthesia care. ASSISTANTS: SPECIMENS: POSTOPERATIVE DIAGNOSES: Colorectal cancer screening, small colon polyp, diverticulosis, and internal hemorrhoids DESCRIPTION OF PROCEDURE: The patient was placed in the left lateral decubitus position. The digital rectal exam revealed no abnormalities. The Olympus video pediatric colonoscope was entered into the rectum and advanced to the cecum with the assistance of abdominal wall pressure. Once in the cecum, I did identify a normal-appearing cecal pouch other than a 3 mm polyp, which was biopsied and completely removed with a cold biopsy forceps. The remainder of the cecum was well visualized and appeared normal. The ileocecal valve did appear to be somewhat prominent and lipomatous. The terminal ileum was cannulated and appeared normal. The scope was withdrawn back in the colon. The scope was then slowly withdrawn assessing all mucosal surfaces carefully. Preparation was excellent. I did not visualize any other polyps, colitis, nor angiodysplasia. There was a mild amount of sigmoid diverticulosis. In the rectum, scope was retroflexed visualizing internal hemorrhoids but no other pathology. The rectal mucosa appeared normal. The scope was straightened and withdrawn from the patient. She tolerated the procedure well and was returned to the recovery area in stable condition. IMPRESSION: 1. Small colon polyp. 2. Diverticulosis. 3. Internal hemorrhoids. PLAN: The results of the biopsies will be checked. I would recommend a repeat colonoscopy in 5 years for further screening and surveillance. She will otherwise see me on a p.r.n. basis. MD CRISTOBAL [place] / [phone]
== END 2022-05-10 14:14 | disposition home or self-care (01) ==
PROVIDERS: PCP Internal Medicine; Visit Provider Internal Medicine
PROC: 0DJD8ZZ Inspection of Lower Intestinal Tract, Via Natural or Artificial Opening Endoscopic (ICD-10-PCS; CPT 45378; principal; 2022-05-10 12:00)
DX: Z12.11 Encounter for screening for malignant neoplasm of colon (principal); Z86.010 Personal history of colon polyps; K63.5 Polyp of colon; K57.30 Diverticulosis of large intestine without perforation or abscess without bleeding; K64.8 Other hemorrhoids; K21.9 Gastro-esophageal reflux disease without esophagitis; G47.33 Obstructive sleep apnea (adult) (pediatric); I10 Essential (primary) hypertension; J44.9 Chronic obstructive pulmonary disease, unspecified; F32.A Depression, unspecified; Z79.899 Other long term (current) drug therapy; Z99.89 Dependence on other enabling machines and devices
CPT/HCPCS: 45380; 88305; J0461

== ENCOUNTER 2022-06-29 08:59 | Outpatient (REF) | payer MEDICARE, SELFPAY ==
[2022-06-29 09:17] LABS: MANUAL DIFF FLAG NO
[2022-06-29 09:34] LABS: Basophils Absolute Auto 0.1 X10*3/uL (0.0-0.2); Basophils Percent Auto 0.6 % (0-2); Eosinophils Absolute Auto 0.1 X10*3/uL (0.0-0.4); Eosinophils Percent Auto 1.3 % (0-4); Hematocrit 40.8 % (37.0-47.0); Hemoglobin 13.2 g/dl (12.0-16.0); Imm Gran Abs Auto 0.06 X10*3/uL (0.00-0.03); Imm Gran Pct Auto 0.6 % (0.0-0.4); Lymphocytes Absolute Auto 2.8 X10*3/uL (1.2-4.9); Lymphocytes Percent Auto 25.6 % (20-40); Mean Corpuscular HGB Conc 32.4 g/dl (31.0-35.0); Mean Corpuscular Hemoglobin 28.8 pg (27.0-33.0); Mean Corpuscular Volume 89.1 fL (80.0-98.0); Mean Platelet Volume 10.2 fL (9.4-12.3); Monocytes Absolute Auto 0.7 X10*3/uL (0.1-1.2); Monocytes Percent Auto 6.5 % (2-11); Neutrophils Absolute Auto 7.1 x10*3/uL (2.0-8.3); Neutrophils Percent Auto 65.4 % (45-73); Platelet Count 385 X10*3/uL (160-400); Red Blood Count 4.58 X10*6/uL (4.20-5.50); Red Cell Distribution Width 13.6 % (11.0-16.0); White Blood Count 10.8 X10*3/uL (4.8-10.8)
[2022-06-29 09:36] LABS: Appearance Urine Clear; Color Urine Yellow; Glucose Urine UA Negative (Negative); Leukocyte Esterase Urine Negative (Negative); Nitrite Urine Negative (Negative); Specific Gravity - Urine 1.015 (1.005-1.025); Urine Blood Negative (Negative); Urine Ketones Negative (Negative); Urine Protein Negative (Neg-Trace)
[2022-06-29 10:20] LABS: Alanine Aminotransferase 12 U/L (0-31); Albumin Level 3.6 g/dL (3.5-5.0); Alkaline Phosphatase 101 U/L (39-117); Anion Gap 13 (12-20); Aspartate Amino Transferase 15 U/L (5-31); Bilirubin Total 0.5 mg/dL (0.0-1.0); Blood Urea Nitrogen 11 mg/dL (9-16); Calcium 9.5 mg/dL (8.4-10.2); Carbon Dioxide 29 mmol/L (22-29); Chloride 107 mmol/L (96-108); Cholesterol 169 mg/dL; Estimated Glomerular Filt Rate > 60; Glucose Fasting 95 mg/dL (60-99); HDL Cholesterol 65 mg/dL; LDL Cholesterol Calculated 89 mg/dl; Potassium 5.1 mmol/L (3.3-5.1); Sodium 144 mmol/L (135-145); Total Protein 6.3 g/dL (6.5-8.0); Triglycerides 78 mg/dL
[2022-06-29 10:39] LABS: TSH reflex Free T4 1.04 uIU/mL (0.32-4.0); Vitamin D 25-OH Total 35.5 ng/mL (>30)
== END 2022-06-29 09:00 | disposition home or self-care (01) ==
LOC: HO.LAB 08:59
PROVIDERS: Visit Provider Internal Medicine
DX: E55.9 Vitamin D deficiency, unspecified (principal); I10 Essential (primary) hypertension; E78.00 Pure hypercholesterolemia, unspecified
CPT/HCPCS: 36415; 80053; 80061; 81003; 82306; 84443; 85025

== ENCOUNTER 2022-11-11 07:43 | Outpatient (REF) | payer MEDICARE, SELFPAY ==
[2022-11-11 08:01] LABS: MANUAL DIFF FLAG NO
[2022-11-11 08:04] LABS: Basophils Percent Auto 0.1 % (0-2); Eosinophils Absolute Auto 0.1 X10*3/uL (0.0-0.4); Eosinophils Percent Auto 0.5 % (0-4); Hematocrit 41.1 % (37.0-47.0); Hemoglobin 13.8 g/dl (12.0-16.0); Imm Gran Abs Auto 0.11 X10*3/uL (0.00-0.03); Imm Gran Pct Auto 0.6 % (0.0-0.4); Lymphocytes Absolute Auto 2.6 X10*3/uL (1.2-4.9); Mean Corpuscular HGB Conc 33.6 g/dl (31.0-35.0); Mean Corpuscular Hemoglobin 28.2 pg (27.0-33.0); Mean Corpuscular Volume 83.9 fL (80.0-98.0); Mean Platelet Volume 10.1 fL (9.4-12.3); Monocytes Absolute Auto 1.1 X10*3/uL (0.1-1.2); Monocytes Percent Auto 6.3 % (2-11); Neutrophils Absolute Auto 13.6 x10*3/uL (2.0-8.3); Neutrophils Percent Auto 77.5 % (45-73); Platelet Count 402 X10*3/uL (160-400); White Blood Count 17.6 X10*3/uL (4.8-10.8)
[2022-11-11 08:37] LABS: Estimated Average Glucose 114 mg/dL; Hemoglobin A1C 144.1862 umol/L; Hemoglobin A1c % 5.6 %
[2022-11-11 08:43] LABS: Alanine Aminotransferase 14 U/L (0-31); Albumin Level 3.7 g/dL (3.5-5.0); Alkaline Phosphatase 93 U/L (39-117); Anion Gap 14 (12-20); Aspartate Amino Transferase 14 U/L (5-31); Bilirubin Total 0.5 mg/dL (0.0-1.0); Blood Urea Nitrogen 24 mg/dL (9-16); Calcium 9.5 mg/dL (8.4-10.2); Carbon Dioxide 25 mmol/L (22-29); Chloride 105 mmol/L (96-108); Cholesterol 173 mg/dL; Estimated Glomerular Filt Rate > 60; Glucose Fasting 108 mg/dL (60-99); HDL Cholesterol 74 mg/dL; LDL Cholesterol Calculated 88 mg/dl; Potassium 4.9 mmol/L (3.3-5.1); Sodium 139 mmol/L (135-145); Total Protein 6.4 g/dL (6.5-8.0); Triglycerides 59 mg/dL
[2022-11-11 09:00] LABS: TSH reflex Free T4 1.67 uIU/mL (0.32-4.0); Vitamin D 25-OH Total 34.7 ng/mL (>30)
[2022-11-11 10:01] LABS: Appearance Urine Clear; Color Urine Yellow; Glucose Urine UA Negative (Negative); Leukocyte Esterase Urine Negative (Negative); Nitrite Urine Negative (Negative); Urine Blood Negative (Negative); Urine Ketones Negative (Negative); Urine Protein Negative (Neg-Trace)
== END 2022-11-11 07:44 | disposition home or self-care (01) ==
LOC: HO.LAB 07:43
PROVIDERS: PCP Internal Medicine; Visit Provider Internal Medicine
DX: R30.0 Dysuria (principal); R73.01 Impaired fasting glucose; E78.00 Pure hypercholesterolemia, unspecified; I10 Essential (primary) hypertension; E55.9 Vitamin D deficiency, unspecified
CPT/HCPCS: 36415; 80053; 80061; 81003; 82306; 83036; 84443; 85025

== ENCOUNTER 2022-11-12 14:23 | Outpatient (REF) | payer MEDICARE, SELFPAY ==
[2022-11-12 15:02] LABS: MANUAL DIFF FLAG NO
[2022-11-12 17:02] LABS: Basophils Percent Auto 0.2 % (0-2); Eosinophils Absolute Auto 0.1 X10*3/uL (0.0-0.4); Eosinophils Percent Auto 0.4 % (0-4); Hematocrit 41.8 % (37.0-47.0); Hemoglobin 13.6 g/dl (12.0-16.0); Imm Gran Abs Auto 0.13 X10*3/uL (0.00-0.03); Imm Gran Pct Auto 0.8 % (0.0-0.4); Lymphocytes Percent Auto 11.6 % (20-40); Mean Corpuscular HGB Conc 32.5 g/dl (31.0-35.0); Mean Corpuscular Hemoglobin 28.3 pg (27.0-33.0); Mean Corpuscular Volume 87.1 fL (80.0-98.0); Monocytes Absolute Auto 1.3 X10*3/uL (0.1-1.2); Monocytes Percent Auto 7.8 % (2-11); Neutrophils Absolute Auto 13.7 x10*3/uL (2.0-8.3); Neutrophils Percent Auto 79.2 % (45-73); Platelet Count 410 X10*3/uL (160-400); Red Cell Distribution Width 15.2 % (11.0-16.0); White Blood Count 17.3 X10*3/uL (4.8-10.8)
[2022-11-12 17:17] LABS: Estimated Average Glucose 108 mg/dL; Hemoglobin A1c % 5.4 %
[2022-11-12 17:26] LABS: Alanine Aminotransferase 13 U/L (0-31); Albumin Level 3.7 g/dL (3.5-5.0); Alkaline Phosphatase 90 U/L (39-117); Anion Gap 16 (12-20); Aspartate Amino Transferase 13 U/L (5-31); Bilirubin Total 0.5 mg/dL (0.0-1.0); Blood Urea Nitrogen 24 mg/dL (9-16); Calcium 9.4 mg/dL (8.4-10.2); Carbon Dioxide 25 mmol/L (22-29); Chloride 105 mmol/L (96-108); Cholesterol 170 mg/dL; Estimated Glomerular Filt Rate 59; Glucose Fasting 103 mg/dL (60-99); HDL Cholesterol 75 mg/dL; LDL Cholesterol Calculated 82 mg/dl; Potassium 4.7 mmol/L (3.3-5.1); Sodium 141 mmol/L (135-145); Total Protein 6.3 g/dL (6.5-8.0); Triglycerides 69 mg/dL
[2022-11-12 17:55] LABS: Folate 5.9 ng/mL (> or = 4.0); TSH reflex Free T4 1.64 uIU/mL (0.32-4.0); Vitamin B12 390 pg/mL (200-900); Vitamin D 25-OH Total 35.5 ng/mL (>30)
== END 2022-11-12 14:24 | disposition home or self-care (01) ==
LOC: HO.LAB 14:23
PROVIDERS: PCP Internal Medicine; Visit Provider Internal Medicine
DX: I10 Essential (primary) hypertension (principal); E78.00 Pure hypercholesterolemia, unspecified; E53.8 Deficiency of other specified B group vitamins; E11.9 Type 2 diabetes mellitus without complications; E55.9 Vitamin D deficiency, unspecified; D72.829 Elevated white blood cell count, unspecified; R53.83 Other fatigue
CPT/HCPCS: 36415; 80053; 80061; 82306; 82607; 82746; 83036; 84443; 85025; 88184; 88185

== ENCOUNTER 2022-11-13 15:44 | Outpatient (REF) | payer MEDICARE, SELFPAY ==
[2022-11-13 15:52] LABS: Appearance Urine Cloudy; Color Urine Yellow; Glucose Urine UA Negative (Negative); Leukocyte Esterase Urine Negative (Negative); Nitrite Urine Negative (Negative); Specific Gravity - Urine 1.025 (1.005-1.025); Urine Blood Negative (Negative); Urine Ketones Negative (Negative); Urine Protein Negative (Neg-Trace)
== END 2022-11-13 15:45 | disposition home or self-care (01) ==
LOC: HO.LNP 15:44
PROVIDERS: Visit Provider Internal Medicine
DX: R30.0 Dysuria (principal)
CPT/HCPCS: 81003